=== PATIENT | male | born 1995 | race Caucasian/White ===

== ENCOUNTER 2019-01-26 22:59 | Inpatient (IN) ==
[2019-01-27 00:28] LABS: Amphetamine Screen,Urine Negative ng/mL (Cutoff=1000); Barbiturate Screen,Urine Negative ng/mL (Cutoff=200); Benzodiazepines Screen,Urine Negative ng/mL (Cutoff=200); Cannabinoid Screen,Urine Negative ng/mL (Cutoff = 50); Cocaine Screen,Urine Negative ng/mL (Cutoff= 300); Opiate Screen,Urine Negative ng/mL (Cutoff=300); Phencyclidine Screen,Urine Negative ng/mL (Cutoff=25)
[2019-01-27 00:31] LABS: Acetaminophen < 10 mcg/mL (10-20); BUN/Creatinine Ratio 26 (6-26); Blood Urea Nitrogen 22 mg/dL (6-20); Calcium 9.3 mg/dL (8.6-10.3); Carbon Dioxide 26 mEq/L (23-29); Chloride 106 mEq/L (98-107); Cholesterol 151 mg/dL (< 200); Ethanol < 10 mg/dL (Less than 10); Glucose 94 mg/dL (70-105); HDL Cholesterol 30 mg/dL (40-59); LDL Cholesterol,Calculated 93 mg/dL (0-99); Osmolality,Calculated 283 (280-300); Salicylate < 2.5 mg/dL (15.0-30.0); Sodium 135 mEq/L (136-145); Triglycerides 142 mg/dL (< 150); eGFR For African Americans > 60 (> 60); eGFR For Non-African Americans > 60 (> 60)
[2019-01-27 00:41] LABS: Basophils % 0.5 %; Eosinophils # 0.1 K/mcL (0.0-0.6); Eosinophils % 0.9 %; Hematocrit 48.6 % (37.5-50.1); Hemoglobin 16.8 g/dL (12.9-16.9); Immature Granulocytes % 0.4 % (0-4); Lymphocytes # 1.5 K/mcL (0.6-4.6); Lymphocytes % 18.2 %; Mean Corpuscular HGB Conc 34.6 g/dL (31.6-35.5); Mean Corpuscular Hemoglobin 30.3 pg (28.0-33.3); Mean Corpuscular Volume 87.7 fL (83.0-100.0); Mean Platelet Volume 11.5 fL (9.4-12.4); Monocytes # 0.6 K/mcL (0.0-1.3); Monocytes % 6.7 %; Platelet Count 208 K/mcL (140-400); Red Blood Count 5.54 M/mcL (4.19-5.50); Red Cell Distribution Width 12.7 % (11.5-14.5); Segmented Neutrophils % 73.3 %; White Blood Count 8.2 K/mcL (4.3-11.1)
[2019-01-27 00:44] LABS: Bilirubin,Urine Negative (Negative); Blood,Urine Negative (Negative); Clarity,Urine Clear (Clear); Color,Urine Yellow (Yellow); Glucose,Urine (UA) Normal (Normal); Ketones,Urine Negative (Negative); Leukocyte Esterase,Urine Negative (Negative); Nitrite,Urine Negative (Negative); Protein,Urine Trace mg/dL (Neg-Trace); Specific Gravity,Urine 1.029 (1.010-1.025); Urobilinogen,Urine Normal (Normal)
[2019-01-27 01:06] LABS: Estimated Average Glucose 100 mg/dl
[2019-01-27] MEDS ORDERED: Acetaminophen 325 MG TABLET PO PRN (03:32)
[2019-01-27] MEDS ORDERED: Mag Hydrox/Al Hydrox/Simeth 30 ML UDC PO PRN (03:32)
[2019-01-27] MEDS ORDERED: traZODone 50 MG TABLET PO PRN (03:32)
[2019-01-27] MEDS ORDERED: *HR* LORazepam 2 MG/ML VIAL IM PRN (03:32)
[2019-01-27] MEDS ORDERED: MOM Conc 10 ML UD.LIQ PO PRN (03:32)
[2019-01-27] MEDS ORDERED: Haloperidol Lactate 5 MG/ML VIAL IM PRN (03:32)
[2019-01-27] MEDS ORDERED: hydrOXYzine pamoate 25 MG CAPSULE PO PRN (03:32)
[2019-01-27] MEDS ORDERED: *HR* LORazepam 1 MG TABLET PO PRN (03:32)
[2019-01-27] MEDS ORDERED: Gabapentin 300 MG CAPSULE PO PRN (14:19)
[2019-01-27] MEDS: Divalproex (12 HR) 500 MG TABLET PO SCH (21:35)
[2019-01-27] MEDS: Melatonin 3 MG TABLET PO SCH (21:37)
[2019-01-28] MEDS: Divalproex (12 HR) 500 MG TABLET PO SCH (21:19)
[2019-01-28] MEDS: Melatonin 3 MG TABLET PO SCH (21:20)
[2019-01-29] MEDS: Melatonin 3 MG TABLET PO SCH (21:12)
[2019-01-29] MEDS: Divalproex (12 HR) 500 MG TABLET PO SCH (21:13)
[2019-01-30 10:54] VITALS: BP 109/46
== END 2019-01-30 16:26 | disposition home or self-care (01) | DRG 750 ==
LOC: EMEROOARM 22:59 → SUATTDRO 01-27 03:17 → 1ANU 01-27 03:17
PROVIDERS: ADMIT Psychiatry & Neurology Psychiatry; ATTEND Psychiatry & Neurology Psychiatry